=== PATIENT | female | born 1985 | race Caucasian/White ===

== ENCOUNTER → 2016-09-15 | Outpatient (CLI) | payer BC | END | disposition home or self-care (01) | LOC: C.PAPS 08:49 | PROVIDERS: ATTEND Obstetrics & Gynecology | DX: Z01.419 Encounter for gynecological examination (general) (routine) without abnormal findings (principal); Z87.42 Personal history of other diseases of the female genital tract ==

== ENCOUNTER → 2017-09-22 | Outpatient (CLI) | payer BC | END | disposition home or self-care (01) | LOC: C.PAPS 09:15 | PROVIDERS: ATTEND Obstetrics & Gynecology | DX: Z01.419 Encounter for gynecological examination (general) (routine) without abnormal findings (principal) ==

== ENCOUNTER 2023-04-29 01:57 | Inpatient (IN) ==
[2023-04-29] MEDS ORDERED: PENICILLIN GK 6 MU in DEXTROSE 5% 250 ML IV STA (02:49)
[2023-04-29] MEDS ORDERED: OXYTOCIN 30 UNITS/NSS 30 UNITS/500 ML BAG IV PRN ×3 (02:49→20:00)
[2023-04-29] MEDS ORDERED: LIDOCAINE 1% LOCAL 20 ML VIAL INFIL PRN (02:49)
--- NOTE | 2023-04-29 03:01 | Labor Progress Brief Note ---
Date of Service April 29, 2023 Subjective 37yo @ 40w2d presents with ROM occurring at 0048 this morning, for clear fluid. She was feeling "period cramps" about every 10 minutes at the closest together upon arrival to L&D. No VB, good FM. Has a history of 1'CS for breech in prior , as well as fibroid in L lateral uterine wall measuring about 4cm. Patient was scheduled for default CS 05/03 but was strongly desirous of TOLAC/ if possible. She brings a plan and wants to attempt tonight when it is discussed again upon admission. Assessment & Plan (1) Group B streptococcal infection during : Plan: Start PCN. Has h/o rash, nothing worse. (2) Previous delivery affecting : Plan: Patient re-confirms consent for today on admission. Aware of 1% risk of uterine dehiscence/rupture and risks to mom/baby life in the event of that occurring, aware of increased risk of emergent CS as compared to planned CS, and feels strongly desirous of vaginal delivery if possible. Aware she may require augmentation with its attendant increased risks, as she is ruptured without current painful or traceable contractions - though she has made some cervical change compared to my exam 2 days ago so will manage expectantly for now. (3) Elderly multigravida, currently : (4) Subserous leiomyoma of uterus: Plan: Noted as above, L lateral, 4cm at 32wk US. Physical Exam Constitutional: WD/WN, vitals as above not in distress Eyes: PERRL, conjunctivae normal, anicteric sclerae ENMT: external ear and nose normal, oropharynx normal Neck: supple Respiratory: normal respiratory effort and able to speak in complete sentences; no respiratory distress Cardiovascular: Rate/Rhythm: regular rate and regular rhythm Extremities: + pedal edema (trace) Gastrointestinal (Abdomen): Gravid / AGA, nontender Musculoskeletal: no cyanosis or clubbing, extremities motor strength 5/5 Skin: no rashes, warm and dry Psychiatric: A+Ox3, euthymic affect Genitourinary: Speculum/Bimanual Exam: no vaginal lesions, no vaginal bleeding and uterus nontender OB Exam Abdomen: + vertex and + estimated weight (7) Manual OB Exam: + cervical dilation 3 cm, + cervical effacement 70%, + station -2 and + amniotic fluid (Clear LOF) nitrazine positive OB Exam Monitor Tracing: + external FHT monitor used, + external uterine monitor used and + category I Lymphatic: no cervical or axillary lymphadenopathy Results & Data Vital Signs (Past 12 Hours) Vital Signs Pulse BP 04/29/23 02:31 104 H 124/75 04/29/23 02:19 93 H 137/87 Coding Level of Care Code None Diagnoses Group B streptococcal infection during O98.819; B95.1 Previous delivery affecting O34.219 Elderly multigravida, currently O09.529 Subserous leiomyoma of uterus D25.2
[2023-04-29 03:19] LABS: Hematocrit (blood only) 36.7 % (37.0-47.0); Hemoglobin 12.6 g/dl (12.0-16.0); Mean Corpuscular Hemoglobin 30.2 pg (25.0-34.0); Mean Corpuscular Hgb Conc 34.3 g/dL (32.0-36.0); Mean Platelet Volume 10.1 fL (9.4-12.4); Platelet Count 238 K/uL (130-400); RDW Coefficient of Variation 13.2 % (11.5-14.5); RDW Standard Deviation 42.5 fL (36.4-46.3); Red Blood Count 4.17 M/uL (4.20-5.40); White Blood Count 10.36 K/ul (4.8-10.8)
[2023-04-29] MEDS: LACTATED RINGER'S 1,000 ML IV PRN ×3 (03:26→17:24)
[2023-04-29] MEDS ORDERED: SODIUM CHLORIDE 0.9% 250 ML IV PRN (04:02)
--- NOTE | 2023-04-29 06:40 | Labor Progress Brief Note ---
Date of Service April 29, 2023 Subjective Feeling contractions, she believes Q7-10min Assessment & Plan (1) Normal labor: Plan: Cervical change present, though small; discussed early labor, wishes to continue expectant management. Admission and Anticipated Discharge Date Admission Date: April 29, 2023 Physical Exam Genitourinary: /-2 mod segun +acc -dec toco quiet (vs not traced, as patient feels ctx we do not scrap picker, and cervix is definitely thinner) Results & Data Vital Signs (Past 12 Hours) Vital Signs Temp Pulse Resp BP 04/29/23 05:41 100 H 125/82 04/29/23 05:40 18 04/29/23 05:40 97.7 F 18 04/29/23 04:00 18 04/29/23 04:00 97.9 F 18 04/29/23 02:58 97.9 F 18 04/29/23 02:31 104 H 124/75 04/29/23 02:19 93 H 137/87 04/29/23 02:16 18 04/29/23 02:16 97.9 F 18 Coding Level of Care Code None Diagnoses Normal labor O80; Z37.9
--- NOTE | 2023-04-29 06:58 | Anesthesiology Consultation ---
Date of Service April 29, 2023 Assessment & Plan Chart Review Chart Review: Acceptable Risk for Surgery and Patient NOT seen in Pre Admission Testing Consults Requested none ASA ASA2 Proposed Anesthesia Anesthesia Type: Labor Epidural and CSE History Height/Weight Height: 5 ft 4 in Weight: 97.522 kg Allergies Allergy/AdvReac Type Severity Reaction Status Date / Time Penicillins Allergy Mild Rash Verified 04/27/23 15:51 Medications Home Medications Medication Instructions Recorded Confirmed Last Taken prenat.vits,oni,dol-tuxa-osqyh 1 tab PO QAM 10/03/20 04/29/23 04/28/23 09:00 breast pump #1 ea 02/17/23 04/29/23 Unknown Active Medications Generic Name Dose Route Start Last Admin Trade Name Freq PRN Reason Stop Dose Admin Lactated Ringer's 1,000 mls @ 125 mls/hr 04/29/23 02:49 04/29/23 03:26 Lr IV 05/01/23 02:48 125 mls/hr .Q8H PRN Administration L&D Protocol Protocol Past Medical History Medical History Group beta Strep positive IUGR (intrauterine growth restriction) affecting care of mother first only Uterine fibroid complicating care, baby not yet delivered History of chicken pox Subserous leiomyoma of uterus morbid obesity Exercise / Class Metabolic Activity II 4-5 Yardwork/Stairs/Walk up hill Past Family History Family History Grandfather (Maternal) Heart murmur Hypothyroidism Hypertension Mother Uterine fibroid Mitral valve prolapse Grandmother (Maternal) Hypertension Grandmother (Paternal) Stroke Denies family history of Ovarian cancer Breast cancer Colorectal cancer Past Surgical History Surgical History History of H/O knee surgery arthroscopic bone removal from rt knee Hx of oral surgery wisdom teeth removed; bone graft sx; oral implant placed Hx of appendectomy Past Anesthesia History No Hx of Anesthesia Complications and No Family Hx of Anesthesia Complications History of PONV No Hx of PONV and No Hx of Motion Sickness Social History Smoking Status: Never smoker Do You Dip or Chew Tobacco: No Hx Alcohol Use: No alcohol intake frequency: other Hx Substance Use: No substance use type: does not use Physical Exam Vital Signs Last Vital Signs Temp 36.5 C 04/29/23 05:40 Pulse 100 H 04/29/23 05:41 Resp 18 04/29/23 05:40 BP 125/82 04/29/23 05:41 Testing Laboratory Results 04/29/23 03:02
[2023-04-29] MEDS: PENICILLIN GK 3 MU in DEXTROSE 5% 100 ML IV PRN ×3 (07:23→16:50)
--- NOTE | 2023-04-29 10:57 | Labor Progress Brief Note ---
Date of Service April 29, 2023 Subjective Notes intermittently a few more contractions and then jason out. Assessment & Plan (1) Group B streptococcal infection during : (2) Previous delivery affecting : Plan Had a conversation at 9am about the situation. She is NOT in labor. GBS positive, two doses and rom for 8+hours. Discussed do not need to do anything, but discussed the issues or prolonged rom in GBS + patient and not laboring. Increased risk of infection at 24 hours. Recommended pit aug at 9am, but do not have to intervene. She wanted to wait a couple of more hours. We are there now and no significant change in contractions. She is now agreeable to augmentation. Will walk until we get pit up. Discussed pain management, plan reviewed. Did discuss that our ultimate number one goal is and discussed I would be recommending things to achieve that goal. Admission and Anticipated Discharge Date Admission Date: April 29, 2023 Physical Exam Physical Exam: cx--deferred toco--very spaced q 5-10 min efm--category one. Results & Data Vital Signs (Past 12 Hours) Vital Signs Temp Pulse Resp BP 04/29/23 09:53 36.6 C 78 18 127/82 04/29/23 07:04 36.9 C 86 16 112/77 04/29/23 05:41 100 H 125/82 04/29/23 05:40 18 04/29/23 05:40 36.5 C 18 04/29/23 04:00 18 04/29/23 04:00 36.6 C 18 04/29/23 02:58 36.6 C 18 04/29/23 02:31 104 H 124/75 04/29/23 02:19 93 H 137/87 04/29/23 02:16 18 04/29/23 02:16 36.6 C 18 Coding Level of Care Code None Diagnoses Group B streptococcal infection during O98.819; B95.1 Previous delivery affecting O34.219
--- NOTE | 2023-04-29 15:08 | Labor Progress Brief Note ---
Date of Service April 29, 2023 Subjective Patient much more uncomfortable, moving around with contractions. Assessment & Plan (1) Group B streptococcal infection during : (2) Previous delivery affecting : Plan continue current management. fetus category one. Admission and Anticipated Discharge Date Admission Date: April 29, 2023 Physical Exam Physical Exam: cx--3+/100/-2 toco--q 2-4min, pit at 4 efm--130s with mod variability, small accels , no decels. Results & Data Vital Signs (Past 12 Hours) Vital Signs Temp Pulse Resp BP 04/29/23 15:01 71 141/77 H 04/29/23 14:01 36.6 C 85 18 123/83 04/29/23 12:43 36.8 C 83 16 115/84 04/29/23 11:32 96 H 20 130/70 04/29/23 09:53 36.6 C 78 18 127/82 04/29/23 07:04 36.9 C 86 16 112/77 04/29/23 05:41 100 H 125/82 04/29/23 05:40 18 04/29/23 05:40 36.5 C 18 04/29/23 04:00 18 04/29/23 04:00 36.6 C 18 Coding Level of Care Code None Diagnoses Group B streptococcal infection during O98.819; B95.1 Previous delivery affecting O34.219
[2023-04-29] MEDS ORDERED: fentaNYL citrate PF 100 MCG/2 ML VIAL ONE (15:14)
[2023-04-29] MEDS ORDERED: ePHEDrine sulfate 50 MG/ML AMP ONE (15:14)
[2023-04-29] MEDS ORDERED: SODIUM CHLORIDE 0.9% PF INJ 10 ML VIAL ONE (15:15)
[2023-04-29] MEDS ORDERED: fentANYL 2 MCG/ML BUPIVacaine 0.125%-NSS 100ML BAG ONE (15:15)
[2023-04-29] MEDS ORDERED: LIDOCAINE 2%/EPINEPHRINE 1:200,000 20 ML PF ONE (15:15)
[2023-04-29] MEDS ORDERED: BUPIVACAINE 0.25% PF 30 ML VIAL ONE (15:15)
[2023-04-29] MEDS ORDERED: diphenhydrAMINE 50 MG/ML VIAL IV PRN (15:26)
[2023-04-29] MEDS ORDERED: LIDOCAINE 2% MPF LOCAL 5 ML VIAL EPI PRN (15:26)
[2023-04-29] MEDS ORDERED: SODIUM CHLORIDE 0.9% PF INJ 10 ML VIAL EPI STA (15:26)
[2023-04-29] MEDS ORDERED: BUPIVACAINE 0.25% PF 30 ML VIAL EPI PRN (15:26)
[2023-04-29] MEDS ORDERED: NALBUPHINE HCL 5 MG in SYRINGE 0 ML IV PRN (15:26)
[2023-04-29] MEDS ORDERED: fentaNYL citrate PF 100 MCG/2 ML VIAL EPI PRN (15:26)
[2023-04-29] MEDS ORDERED: BUPIVACAINE 0.25% PF 30 ML VIAL EPI STA (15:26)
[2023-04-29] MEDS ORDERED: ePHEDrine sulfate 50 MG/ML AMP IV PRN (15:26)
[2023-04-29] MEDS ORDERED: fentANYL 2 MCG/ML BUPIVacaine 0.125%-NSS 100ML BAG EPI PRN (15:26)
[2023-04-29] MEDS ORDERED: fentaNYL citrate PF 100 MCG/2 ML VIAL EPI STA (15:26)
[2023-04-29] MEDS ORDERED: NALOXONE HCL 0.4 MG/1 ML VIAL/CARP IV PRN (15:26)
[2023-04-29] MEDS ORDERED: NALOXONE HCL 1 MG in SODIUM CHLORIDE 0.9% 1,000 ML IV PRN (15:26)
[2023-04-29] MEDS ORDERED: SODIUM CHLORIDE 0.9% PF INJ 10 ML VIAL EPI PRN (15:26)
[2023-04-29] MEDS ORDERED: ROPIVACAINE 0.5% PF 5 MG/ML 20 ML VIAL EPI PRN (15:26)
[2023-04-29] MEDS ORDERED: LIDOCAINE 2%/EPINEPHRINE 1:200,000 20 ML PF EPI STA (15:26)
[2023-04-29] MEDS ORDERED: ONDANSETRON INJ 2 MG/ML 2 ML VIAL IV PRN (15:26)
--- NOTE | 2023-04-29 15:31 | Anesthesiology Consultation ---
Date of Service April 29, 2023 Assessment & Plan (1) Encounter for pre-operative examination: Chart Review Chart Review: Patient NOT seen in Pre Admission Testing and Acceptable Risk for Labor Epidural Consults Requested none History Height/Weight Height: 5 ft 4 in Weight: 97.522 kg Allergies Allergy/AdvReac Type Severity Reaction Status Date / Time Penicillins Allergy Mild Rash Verified 04/27/23 15:51 Medications Home Medications Medication Instructions Recorded Confirmed Last Taken prenat.vits,oni,mel-ifaf-wqmus 1 tab PO QAM 10/03/20 04/29/23 04/28/23 09:00 breast pump #1 ea 02/17/23 04/29/23 Unknown Active Medications Generic Name Dose Route Start Last Admin Trade Name Freq PRN Reason Stop Dose Admin Lactated Ringer's 1,000 mls @ 125 mls/hr 04/29/23 02:49 04/29/23 15:10 Lr IV 05/01/23 02:48 999 mls/hr .Q8H PRN Infusion L&D Protocol Protocol Penicillin G Potassium 3 mu/ 106 mls @ 100 mls/hr 04/29/23 05:50 04/29/23 13:57 Dextrose IV 05/09/23 05:49 Infused Q4H PRN Infusion GBS(+) Until Delivery Oxytocin 30 units in 500 mls @ 4 mls/hr 04/29/23 10:07 04/29/23 13:50 Pitocin 30 Units/Nss IV 05/01/23 10:06 0.24 units/hr .Q24H PRN 4 mls/hr Labor Induction/Augmentation Titration Protocol 0.24 UNITS/HR Past Medical History Medical History Group beta Strep positive IUGR (intrauterine growth restriction) affecting care of mother first only Uterine fibroid complicating care, baby not yet delivered History of chicken pox Subserous leiomyoma of uterus Exercise / Class Metabolic Activity II 4-5 Yardwork/Stairs/Walk up hill Past Family History Family History Grandfather (Maternal) Heart murmur Hypothyroidism Hypertension Mother Uterine fibroid Mitral valve prolapse Grandmother (Maternal) Hypertension Grandmother (Paternal) Stroke Denies family history of Ovarian cancer Breast cancer Colorectal cancer Past Surgical History Surgical History History of H/O knee surgery arthroscopic bone removal from rt knee Hx of oral surgery wisdom teeth removed; bone graft sx; oral implant placed Hx of appendectomy Past Anesthesia History No Hx of Anesthesia Complications and No Family Hx of Anesthesia Complications Social History Smoking Status: Never smoker Do You Dip or Chew Tobacco: No Hx Alcohol Use: No alcohol intake frequency: other Hx Substance Use: No substance use type: does not use Physical Exam Vital Signs Last Vital Signs Temp 36.6 C 04/29/23 14:01 Pulse 75 04/29/23 15:50 Resp 18 04/29/23 14:01 BP 141/77 H 04/29/23 15:01 Pulse Ox 100 04/29/23 15:50 Testing Laboratory Results 04/29/23 03:02 Blood Type A Positive 04/29/23 03:02 Antibody Screen NEGATIVE 04/29/23 03:02
--- NOTE | 2023-04-29 16:54 | Labor Progress Brief Note ---
Date of Service April 29, 2023 Subjective comfortable after epidural Assessment & Plan (1) Group B streptococcal infection during : (2) Previous delivery affecting : Plan making some progress now. fetus reassuring category one with early/variables. Going to be a tight fit. Admission and Anticipated Discharge Date Admission Date: April 29, 2023 Physical Exam Physical Exam: cx--7/100/0, very well applied to the cx toco--q2-4min, pit at 4 efm--130s with mod variability, +scalp stim, variable/early with contractions. Results & Data Vital Signs (Past 12 Hours) Vital Signs Temp Pulse Resp BP Pulse Ox 04/29/23 16:50 102 H 100 04/29/23 16:45 90 100 04/29/23 16:40 117 H 100 04/29/23 16:35 95 H 100 04/29/23 16:32 74 118/70 04/29/23 16:30 111 H 100 04/29/23 16:28 125 H 120/76 04/29/23 16:25 82 100 04/29/23 16:24 83 121/82 04/29/23 16:20 100 H 100 04/29/23 16:17 79 113/67 04/29/23 16:15 83 99 04/29/23 16:12 105 H 109/70 04/29/23 16:10 83 99 04/29/23 16:07 36.8 C 88 16 113/65 04/29/23 16:05 95 H 108/61 98 04/29/23 16:03 110 H 100/66 04/29/23 16:01 93 H 119/71 04/29/23 16:00 86 99 04/29/23 15:59 84 116/70 04/29/23 15:57 86 118/69 04/29/23 15:55 99 04/29/23 15:55 76 04/29/23 15:55 77 125/75 04/29/23 15:50 75 100 04/29/23 15:47 85 94 04/29/23 15:45 92 H 97 04/29/23 15:40 101 H 100 04/29/23 15:35 85 99 04/29/23 15:30 68 99 04/29/23 15:25 79 99 04/29/23 15:01 71 141/77 H 04/29/23 14:01 36.6 C 85 18 123/83 04/29/23 12:43 36.8 C 83 16 115/84 04/29/23 11:32 96 H 20 130/70 04/29/23 09:53 36.6 C 78 18 127/82 04/29/23 07:04 36.9 C 86 16 112/77 04/29/23 05:41 100 H 125/82 04/29/23 05:40 18 04/29/23 05:40 36.5 C 18 Coding Level of Care Code None Diagnoses Group B streptococcal infection during O98.819; B95.1 Previous delivery affecting O34.219
--- NOTE | 2023-04-29 18:17 | Labor Progress Brief Note ---
Date of Service April 29, 2023 Subjective comfortable, some pressure Assessment & Plan (1) Group B streptococcal infection during : (2) Previous delivery affecting : Plan Will begin pushing in about 30min, fetus overall reassuring and will hopefully tolerate pushing. Admission and Anticipated Discharge Date Admission Date: April 29, 2023 Physical Exam Physical Exam: cx--c/c/+2 toco--q2-3min, pit at 4 efm--150s with mod variability, variables present, +scalp stim Results & Data Vital Signs (Past 12 Hours) Vital Signs Temp Pulse Resp BP Pulse Ox 04/29/23 18:10 96 H 99 04/29/23 18:07 100 H 128/81 04/29/23 18:05 85 98 04/29/23 18:00 81 99 04/29/23 17:55 82 98 04/29/23 17:53 90 129/73 04/29/23 17:50 101 H 98 04/29/23 17:45 79 98 04/29/23 17:40 73 99 04/29/23 17:37 76 107/57 L 04/29/23 17:35 83 100 04/29/23 17:30 79 100 04/29/23 17:25 82 99 04/29/23 17:22 36.8 C 81 18 111/56 L 04/29/23 17:20 73 100 04/29/23 17:15 91 H 100 04/29/23 17:10 94 H 100 04/29/23 17:09 83 110/55 L 04/29/23 17:05 91 H 100 04/29/23 17:00 84 100 04/29/23 16:55 88 99 04/29/23 16:54 76 118/74 04/29/23 16:50 102 H 100 04/29/23 16:45 90 100 04/29/23 16:40 117 H 100 04/29/23 16:35 95 H 100 04/29/23 16:32 74 118/70 04/29/23 16:30 111 H 100 04/29/23 16:28 125 H 120/76 04/29/23 16:25 82 100 04/29/23 16:24 83 121/82 04/29/23 16:20 100 H 100 04/29/23 16:17 79 113/67 04/29/23 16:15 83 99 04/29/23 16:12 105 H 109/70 04/29/23 16:10 83 99 04/29/23 16:07 36.8 C 88 16 113/65 04/29/23 16:05 95 H 108/61 98 04/29/23 16:03 110 H 100/66 04/29/23 16:01 93 H 119/71 04/29/23 16:00 86 99 04/29/23 15:59 84 116/70 04/29/23 15:57 86 118/69 04/29/23 15:55 99 04/29/23 15:55 76 04/29/23 15:55 77 125/75 04/29/23 15:50 75 100 04/29/23 15:47 85 94 04/29/23 15:45 92 H 97 04/29/23 15:40 101 H 100 04/29/23 15:35 85 99 04/29/23 15:30 68 99 04/29/23 15:25 79 99 04/29/23 15:01 71 141/77 H 04/29/23 14:01 36.6 C 85 18 123/83 04/29/23 12:43 36.8 C 83 16 115/84 04/29/23 11:32 96 H 20 130/70 04/29/23 09:53 36.6 C 78 18 127/82 04/29/23 07:04 36.9 C 86 16 112/77 Coding Level of Care Code None Diagnoses Group B streptococcal infection during O98.819; B95.1 Previous delivery affecting O34.219
--- NOTE | 2023-04-29 19:57 | Delivery Summary ---
Vaginal Delivery Summary Date of Service April 29, 2023 Vaginal Delivery Summary and 2nd Degree LAC (with right sulcal) Pre-operative Diagnosis: 40 2/7 prom hx of previous c/s x 1 gbs positive Post-operative Diagnosis: same meconium Procedure: pitocin augmentation epidural second degree and right sulcal laceration and repair EBL: 400cc Anesthesia: epidural Procedure: Patient presented to labor and delivery with prom, no labor. Expec tantly managed for 8+hours and then agreed to pitocin augmentation She underwent epidural and progressed to c/c/+2 station. She was pushing with good effort and I was out at the nurses station. I then heard the nurses yell we need Dr. Perez right now. I ran into the room and the baby had been delivered by nursing. Apparently she really got behind a push and before anyone could stop her, the baby was delivered. cord still attached. The nose and mouth were bulb suctioned on the maternal abdomen. The baby was vigorous. Cord was clamped and cut at about one minute of life. Cord blood and segment obtained. Placenta delivered spontaneous, intact with a three vessel cord. Meconium noted on the baby, bed and staining on the placenta. Meconium had not been noted prior to delivery. Cervix/sulci/rectum were intact. A second degree perineal laceration and small right sulcal tear were repaired in the normal standard fashion. Hemostasis obtained with dilute pitocin and fundal massage. Apgars were 8/9. Mother and baby doing well at the end of the delivery. MNP Vaginal Delivery Charge Delivery Type Details: and 2nd Degree LAC (with right sulcal)
[2023-04-29] MEDS ORDERED: oxyCODONE/ACETAMINOPHEN 5mg/325mg TAB PO PRN (20:00)
[2023-04-29] MEDS ORDERED: ACETAMINOPHEN 325 MG TAB PO PRN (20:00)
[2023-04-29] MEDS ORDERED: bisacodyL 10 MG SUPP PR PRN (20:00)
[2023-04-29] MEDS ORDERED: DIPHTHERIA/TETANUS/PERTUSSIS Vaccine (Tdap, Age 7+yrs) 0.5mL SYR/VL IM ONE (20:00)
[2023-04-29] MEDS ORDERED: BENZOCAINE 20% SPRY 85 APPLN/85 GM CAN EXT PRN (20:00)
[2023-04-29] MEDS ORDERED: HYDROCORTISONE ACETATE 25 MG SUPP PR PRN (20:00)
--- NOTE | 2023-04-29 20:11 | Anesthesia Procedure Note ---
Date of Service April 29, 2023 Anesthesia Post Epidural Note Vital Signs Vital Signs: Temp Pulse Resp BP Pulse Ox 37.0 C 114 H 18 124/60 97 04/29/23 19:00 04/29/23 19:58 04/29/23 19:00 04/29/23 19:58 04/29/23 19:50 Pain Intensity Abdomen: Pain Intensity: 4 Notes Mental Status: alert / awake / arousable and participated in evaluation Patient Amnestic to Procedure: No Nausea / Vomiting: adequately controlled Pain: adequately controlled Airway Patency, RR, SpO2: stable & adequate BP & HR: stable & adequate Hydration State: stable & adequate Neuraxial Anesthesia: was administered and sensory block is resolving Anesthetic Complications: no major complications apparent and Pt Satisfied with anesthetic care Epidural: Removed without complications and With tip intact
[2023-04-29] MEDS: IBUPROFEN 600 MG TAB PO PRN (22:38)
[2023-04-29] MEDS: DOCUSATE SODIUM 100 MG CAP PO SCH (22:39)
[2023-04-30] MEDS: IBUPROFEN 600 MG TAB PO PRN ×5 (04:23→22:02)
--- NOTE | 2023-04-30 07:51 | Obstetrical Progress Note ---
Date of Service April 30, 2023 Assessment & Plan (1) Encounter for assessment: Plan Doing well. Continue routine pp care. Day #:: 0 Subjective Ambulation: ambulating normally Voiding: no voiding problems Passing Gas:: No Diet Tolerance:: regular diet Lochia:: Small Feeding Type:: breast feeding Still has some numbness of the right leg from epidural Physical Exam Constitutional WD/WN, vitals as above Cardiovascular Extremities: + edema (tr); no calf tenderness Gastrointestinal (Abdomen) soft, nt,nd ff/nt at u Psychiatric A+Ox3, euthymic affect Results & Data Vital Signs (Past 12 Hours) Vital Signs Temp Pulse Pulse Pulse Resp BP BP 04/30/23 04:20 36.6 C 88 18 107/67 04/29/23 23:00 36.5 C 104 H 20 123/82 04/29/23 21:41 99 H 118/79 04/29/23 21:40 36.8 C 18 04/29/23 21:26 104 H 111/55 L 04/29/23 21:11 104 H 112/71 04/29/23 21:10 36.8 C 18 04/29/23 20:41 98 H 120/67 04/29/23 20:40 36.8 C 18 04/29/23 20:26 100 H 118/67 04/29/23 20:25 36.8 C 18 04/29/23 20:11 100 H 127/63 04/29/23 20:10 36.9 C 18 04/29/23 19:58 114 H 124/60 04/29/23 19:55 36.8 C 18 Pulse Ox O2 Del Method 04/30/23 04:20 98 Room Air 04/29/23 23:00 98 Room Air 04/29/23 21:41 04/29/23 21:40 04/29/23 21:26 04/29/23 21:11 04/29/23 21:10 04/29/23 20:41 04/29/23 20:40 04/29/23 20:26 04/29/23 20:25 04/29/23 20:11 04/29/23 20:10 04/29/23 19:58 04/29/23 19:55
[2023-04-30] MEDS: DOCUSATE SODIUM 100 MG CAP PO SCH ×2 (08:43→20:22)
[2023-04-30] MEDS: PRENATAL VITAMIN 1 TAB PO SCH (08:43)
[2023-04-30 09:46] LABS: Hemoglobin 9.8 g/dl (12.0-16.0)
[2023-04-30] MEDS ORDERED: bisacodyL 5 MG TABEC PO SCH (20:00)
[2023-05-01] MEDS: IBUPROFEN 600 MG TAB PO PRN ×3 (03:22→13:40)
--- NOTE | 2023-05-01 07:31 | Obstetrical Progress Note ---
Date of Service May 01, 2023 Assessment & Plan (1) Encounter for assessment: PPD 2, no ext pain, d/c home Subjective Ambulation: ambulating normally Voiding: no voiding problems Passing Gas:: Yes Diet Tolerance:: regular diet Lochia:: Small Physical Exam Constitutional WD/WN, vitals as above well developed and well nourished Respiratory normal respiratory effort, lungs clear to auscultation normal respiratory effort Cardiovascular RRR, no murmur, no edema Gastrointestinal (Abdomen) normal bowel sounds, soft, nontender, no hepatosplenomegaly Results & Data Vital Signs (Past 12 Hours) Vital Signs Temp Pulse Resp BP Pulse Ox O2 Del Method 04/30/23 23:42 98.4 F 96 H 18 112/71 97 Room Air 04/30/23 20:17 98.6 F 96 H 20 123/76 98 Room Air
[2023-05-01] MEDS: PRENATAL VITAMIN 1 TAB PO SCH (08:57)
[2023-05-01] MEDS: DOCUSATE SODIUM 100 MG CAP PO SCH (08:57)
== END 2023-05-01 14:15 | disposition home or self-care (01) | DRG 768 ==
LOC: OPB 01:57 → 4S1 02:01 → 4E2 22:59